=== PATIENT | male | born 1960 | race Caucasian/White ===

== ENCOUNTER 2022-03-06 17:01 | Emergency (ER) | payer OTHER, SELFPAY ==
[2022-03-06 17:06] VITALS: BP 147/93; PULSE 76; RESP 20; TEMP 36.5; O2SAT 100
--- NOTE | 2022-03-06 17:37 | ED.URI ---
HPI - URI/Sore Throat General Chief Complaint: Upper Respiratory Infection Stated Complaint: Congestion/Cough Time Seen by Provider: 03/06/22 17:20 Source: patient, RN notes reviewed and old records reviewed Mode of arrival: ambulatory Limitations: no limitations History of Present Illness HPI Narrative: 61 year old male presents to [facility] with complaints of sinus congestion drainage for 1 week duration denies any ear pain, no known fever. Patient reports that he just flew in from [place] last Sunday and is scheduled to return later this week. Patient reports that he has had copious amounts of nasal congestion and drainage, some cough specially when he lays supine, denies sore throat or ear pain just feels bad. Patient reports that he has been taking Mucinex, DayQuil and some NyQuil. MD elicited complaint: cough and sore throat Onset (ago): week(s) (1) Able to tolerate fluids by mouth: Yes Treatments prior to arrival: other (Mucinex, NyQuil and DayQuil ) Related Data Home Medications Medication Instructions Recorded Confirmed atorvastatin 20 mg tablet 20 mg PO DAILY 03/06/22 03/06/22 losartan 100 mg tablet 100 mg PO DAILY 03/06/22 03/06/22 metformin 500 mg tablet 1,000 mg PO DAILY 03/06/22 03/06/22 metoprolol succinate 50 mg 50 mg PO DAILY 03/06/22 03/06/22 tablet,extended release 24 hr tamsulosin 0.4 mg capsule 0.4 mg PO DAILY 03/06/22 03/06/22 Allergies Allergy/AdvReac Type Severity Reaction Status Date / Time No Known Allergies Allergy Unverified 03/06/22 17:11 Review of Systems Review of Systems: CONSTITUTIONAL: Denies malaise, chills, sweats, or fever. EYES: Denies visual changes, redness, or discharge. ENT: Reports rhinorrhea, congestion, sinus pain,no otalgia no sore throat. CARDIOVASCULAR: Denies chest pain, palpitations, or edema. RESPIRATORY: Reports cough.? Denies dyspnea. GASTROINTESTINAL: Denies abdominal pain, nausea, vomiting, diarrhea SKIN: Denies rash or itching. MUSCULOSKELETAL: Denies myalgia. NEUROLOGIC: Denies headache. All systems reviewed & are unremarkable except as noted in HPI and below PMFSH Past Medical History Medical History (Updated 03/06/22 @ 18:44 by Juliana Stewart NP) BPH (benign prostatic hyperplasia) Elevated cholesterol Hypertension Prediabetes Social History Social History (Updated 03/06/22 @ 18:39 by Juliana Stewart NP) Smoking status: Former smoker Additional smoking assessment comments: quit 5 years ago Alcohol intake: current Alcohol use details: social Substance use type: does not use Gender identity (if verbalized by the patient): Male Comments At time of signature, agree with nursing past medical, surgical, social and family history. There is no relevant family history pertinent to the presenting complaint Exam Narrative: GENERAL: Well-appearing, well-nourished, and in no acute distress. HEAD: Normocephalic EYES: PERRLA, conjunctivae clear ENT: Nares clear, turbinates edematous and erythematous,copious thick clear discharge. Mucous membranes moist. TM pearly chi with dull light reflex bilaterally; no tragal tenderness. Oropharynx erythematous without lesions. Tonsils not enlarged and without exudate, no drooling, no hoarseness, no trismus, uvula midline. NECK: Supple. No lymphadenopathy CHEST: Clear to auscultation, breath sounds equal. No wheezing, rhonchi, rales, or stridor. No respiratory distress, speaks in full sentences.cough noted when supine [id number]% on room air HEART: Regular rate and rhythm. No murmur heard. SKIN: Warm, dry, no rash. NEURO: Alert and oriented x3. PSYCH: Normal mood and affect Course Course Emergency Course: Patient is aware of diagnosis, understands and agrees to treatment plan.? Anticipatory guidance given.? Patient agrees to follow-up as directed and is aware of reasons to seek care at the emergency department. Portions of this record may have been created with voi
== END 2022-03-06 17:50 | disposition home or self-care (01) ==
PROVIDERS: Emergency Provider Registered Nurse; PCP Family Medicine
DX: J32.9 Chronic sinusitis, unspecified (principal); Z87.891 Personal history of nicotine dependence; N40.0 Benign prostatic hyperplasia without lower urinary tract symptoms; E78.00 Pure hypercholesterolemia, unspecified; I10 Essential (primary) hypertension; R73.03 Prediabetes
CPT/HCPCS: 99204; G0463

== ENCOUNTER 2023-04-11 13:36 | Emergency (ER) | payer OTHER, SELFPAY ==
[2023-04-11 13:46] VITALS: BP 111/89; PULSE 99; RESP 16; TEMP 36.3; O2SAT 99
--- NOTE | 2023-04-11 14:06 | ED.GENADULT ---
HPI - General Adult General Chief complaint: Upper Respiratory Infection Stated complaint: sinus congestion Source: patient, RN notes reviewed and old records reviewed Mode of arrival: ambulatory Limitations: no limitations History of Present Illness HPI narrative: 8-year-old male patient presents to [facility] with complaint of cough, congestion, sinus pain this started 5 days ago. Patient taking [id number] medications for relief. Patient denies chest pain, shortness of breath, dizziness, weakness. Related Data Home Medications Medication Instructions Recorded Confirmed atorvastatin 20 mg tablet 20 mg PO DAILY 03/06/22 03/06/22 losartan 100 mg tablet 100 mg PO DAILY 03/06/22 03/06/22 metformin 500 mg tablet 1,000 mg PO DAILY 03/06/22 03/06/22 metoprolol succinate 50 mg 50 mg PO DAILY 03/06/22 03/06/22 tablet,extended release 24 hr tamsulosin 0.4 mg capsule 0.4 mg PO DAILY 03/06/22 03/06/22 empagliflozin 10 mg tablet mg 04/11/23 (Jardiance) furosemide 40 mg tablet mg 04/11/23 potassium chloride 10 mEq meq PO 04/11/23 tablet,extended release sacubitril 24 mg-valsartan 26 mg tablet 04/11/23 tablet (Entresto) spironolactone 25 mg tablet mg 04/11/23 Allergies Allergy/AdvReac Type Severity Reaction Status Date / Time No Known Allergies Allergy Unverified 04/11/23 14:05 Review of Systems Constitutional: Constitutional: Reports no additional constitutional complaints, Denies body ache(s), Denies chills, Reports fatigue, Denies fever(s) and Denies headache(s) Eyes: Eyes: Reports no additional eye complaints and Denies blurry vision ENT: Reports system reviewed and no additional complaints, except as documented, Denies vertigo, Denies dizziness, Denies ear discharge, Denies otalgia, Denies facial pain, Denies headache(s), Reports nasal congestion, Denies nasal discharge, Reports sinus pain, Reports sinus pressure and Denies sore throat Cardiovascular: Cardiovascular: Reports no additional cardiovascular complaints, Denies chest pain, Denies chest pain at rest, Denies rapid heart rate and Denies dyspnea Respiratory: Respiratory: Reports no additional respiratory complaints, Reports chest congestion, Reports cough, Denies pain on inspiration, Denies pain with cough and Denies dyspnea Gastrointestinal: Gastrointestinal: Denies abdominal pain, Denies diarrhea, Denies nausea and Denies vomiting Integumentary/Breasts: Skin/Breast: Denies rash Neurologic: Reports system reviewed and no additional complaints, except as documented, Denies vertigo, Denies dizziness and Denies headache(s) Endocrine: Endocrine: Denies fatigue PMFSH Past Medical History Medical History (Updated 04/11/23 @ 14:16 by Irish Velázquez APRN) BPH (benign prostatic hyperplasia) Elevated cholesterol Hypertension Prediabetes Social History Social History (Updated 03/06/22 @ 18:39 by Juliana Stewart NP) Smoking status: Former smoker Additional smoking assessment comments: quit 5 years ago Alcohol intake: current Alcohol use details: social Substance use type: does not use Gender identity (if verbalized by the patient): Male Comments At the time of my signature, I reviewed and agree with the nursing past medical, surgical, social, and family history. There is no relevant family history pertinent to the patient complaint. Exam Const: General: cooperative, healthy appearing, no acute distress and well nourished Nutritional Appearance: well nourished Orientation/consciousness: patient oriented x3 Limitations: no limitations HENMT: Head: normal to inspection and normocephalic Ears: external ears normal, TM's normal bilaterally, mastoids normal and Abnormal EAC present Face/Nose/Sinus: normal facial exam Face and sinus: normal facial exam Mouth: Yes Normal oral and palatal mucosa present, Yes oropharynx normal and Yes moist mucous membranes Throat: tonsils normal, uvula midline and no uvular edema Eyes: Ge
== END 2023-04-11 14:25 | disposition home or self-care (01) ==
PROVIDERS: Emergency Provider Registered Nurse; PCP Family Medicine
DX: J01.10 Acute frontal sinusitis, unspecified (principal); N40.0 Benign prostatic hyperplasia without lower urinary tract symptoms; E78.00 Pure hypercholesterolemia, unspecified; I10 Essential (primary) hypertension; R73.03 Prediabetes; Z87.891 Personal history of nicotine dependence
CPT/HCPCS: 99213; G0463